=== PATIENT | male | born 1965 | race African-American/Black ===

== ENCOUNTER 2017-11-11 20:09 | Emergency (ER) | payer OTHER ==
[~2017-11-11] VITALS: Ht 182.9 cm; Wt 99.8 kg
--- NOTE | 2017-11-11 20:10 | NUR ---
BIB SELF; LEFT ARM/ HAND PAIN, NAD NOTED, VSS, RESP EVEN AND UNLABORED, PT WAS PUT ON MONITOR, WAITING FOR MD HAROLDO.
[2017-11-11] MEDS ORDERED: KETOROLAC TROMETHAMINE INJ 30 MG/ML VIAL IV ONE (21:00)
[2017-11-11] MEDS ORDERED: HYDROMORPHONE INJ 2 MG/ML DISP.SYRIN IV ONE (21:00)
[2017-11-11] MEDS ORDERED: HYDROMORPHONE INJ 2 MG/ML DISP.SYRIN ONE ×2 (21:00→22:22)
[2017-11-11] MEDS ORDERED: ONDANSETRON HCL/PF 4 MG/2 ML VIAL IVP ONE (21:00)
[2017-11-11] MEDS ORDERED: ONDANSETRON HCL/PF 4 MG/2 ML VIAL ONE (21:01)
[2017-11-11] MEDS ORDERED: KETOROLAC TROMETHAMINE INJ 30 MG/ML VIAL ONE (21:01)
[2017-11-11 21:21] LABS: BASOPHILS # (AUTO) 0.7 /CMM (0.0-0.2); BASOPHILS % (AUTO) 4.2 % (0.0-2.0); EOSINOPHILS % (AUTO) 0.2 % (0.0-6.0); HEMATOCRIT 39 % (39-51); HEMOGLOBIN 12.9 g/dL (13.5-17.5); LYMPHOCYTES # (AUTO) 1.1 /CMM (0.8-4.8); MEAN CORPUSCULAR HEMOGLOBIN 30 PG (26.0-33.0); MEAN CORPUSCULAR HGB CONC 33 g/dl (31.0-36.0); MEAN CORPUSCULAR VOLUME 90 fL (80-96); MONOCYTES # (AUTO) 1.3 /CMM (0.1-1.30); MONOCYTES % (AUTO) 8.2 % (2.0-12.0); NEUTROPHILS # (AUTO) 12.6 /CMM (1.8-8.9); NEUTROPHILS % (AUTO) 80.4 % (43.0-81.0); PLATELET COUNT (AUTO) 222 /CMM (150-450); RDW COEFFICIENT OF VARIATION 15.7 (11.5-15.0); RED BLOOD CELL COUNT(AUTO) 4.29 MIL/uL (4.5-6.0); WHITE BLOOD COUNT (AUTO) 15.7 K/uL (4.3-11.0)
[2017-11-11 21:26] LABS: POTASSIUM 3.9 mmol/L (3.5-5.1)
[2017-11-11 21:28] LABS: CALCIUM, SERUM 9.3 mg/dL (8.5-10.1); CREATININE 1.4 mg/dL (0.6-1.3)
--- NOTE | 2017-11-11 21:35 | NUR ---
ROBBI MACHADO- DARIO PAGED PER EUSEBIO CULP.
[2017-11-11] MEDS ORDERED: CEFTRIAXONE 1 G VIAL ONE (22:22)
[2017-11-11] MEDS ORDERED: HYDROMORPHONE 1 MG/1 ML DISP.SYRIN IV ONE (22:30)
[2017-11-11] MEDS ORDERED: CEFTRIAXONE 1 G in IV D5W 50 ML IV ONE (22:30)
[2017-11-11 22:47] VITALS: BP 134/89
--- NOTE | 2017-11-11 22:48 | NUR ---
Patient discharged to home in stable condition. Written and verbal after care instructions given. Patient verbalizes understanding of instruction.IV removed. Catheter intact and site benign. Pressure and 4x4 applied to site. No bleeding noted.
== END 2017-11-11 22:48 | disposition home or self-care (01) ==
LOC: ER 20:13
DX: M70.22 Olecranon bursitis, left elbow (principal); M79.602 Pain in left arm; D72.829 Elevated white blood cell count, unspecified; N28.9 Disorder of kidney and ureter, unspecified; M10.9 Gout, unspecified; Z85.118 Personal history of other malignant neoplasm of bronchus and lung; Y93.89 Activity, other specified
CPT/HCPCS: 36415; 80048; 85025; 96365; 96375; 96376; 99284; A4606; J0696; J1170 ×2; J1885; J2405; J7060 ×2; Z7610